=== PATIENT | female | born 1965 | race Caucasian/White ===

== ENCOUNTER → 2017-10-27 | Outpatient (CLI) | payer BC | LOC: LAB.O 08:51 | PROVIDERS: ATTEND Nurse Practitioner Family | DX: K11.21 Acute sialoadenitis (principal) ==

== ENCOUNTER → 2017-10-31 | Outpatient (CLI) | payer BC | LOC: LAB.O 10:25 | PROVIDERS: ATTEND Family Medicine | DX: D37.032 Neoplasm of uncertain behavior of the submandibular salivary glands (principal) ==